=== PATIENT | female | born 1990 | race Caucasian/White ===

== ENCOUNTER 2016-04-05 01:20 | Emergency (ER) | payer OTHER ==
[~2016-04-05] VITALS: Ht 165.1 cm; Wt 72.6 kg
[2016-04-05 01:25] VITALS: BP 118/84
[2016-04-05] MEDS ORDERED: NKM (01:27)
[2016-04-05] MEDS ORDERED: levETIRAcetam 500 MG in D5W 110 ML IVPB ONE (01:45)
[2016-04-05] MEDS ORDERED: levETIRAcetam 500mg vial IV ONE (01:48)
[2016-04-05] MEDS ORDERED: KEPPRA500 M4 ORAL (02:01)
--- NOTE | 2016-04-05 02:01 | Emergency Room Report ---
History of Present Illness General Chief Complaint: Seizure Source: Patient, EMS Present Illness HPI This is a 25-year-old male with a history of one episode seizure in 2015. He saw a neurologist and had workup done. He said he had an EEG for 4 days and it showed minor seizure activity when he sleeping. Was placed on Keppra. He never took it. He was eventually clear. At that time the seizure activity was thought to be secondary to sleep deprivation because he was working really hard. He was sleeping then. He present with a 40 seconds tonic-clonic seizure activity tonight. He was driving and felt that he may have a seizure. He pulled over and had a tonic-clonic seizure activity. This was witnessed by his friend. He has no post ictal period. He has no oral trauma. No incontinence of bowel or urine. [place] better now. He is from [place]. 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 He said his been working really hard and not sleeping much. Denies any alcohol or drugs. Also been smoking a lot. Allergies: Coded Allergies: CODEINE (Verified Allergy, Unknown, 04/05/16) Patient History Past Medical History: see triage record, old chart reviewed Past Surgical History: none Pertinent Family History: none Social History: Denies: drug use Immunizations: other Reviewed Nursing Documentation: PMH: Agreed, PSxH: Agreed Review of Systems Eye: Denies: blurred vision, eye pain ENT: Denies: ear pain, nose congestion, throat swelling Respiratory: Denies: cough, shortness of breath Cardiovascular: Denies: chest pain, palpitations Gastrointestinal: Denies: abdominal pain, diarrhea, nausea, vomiting Musculoskeletal: Denies: back pain, joint pain Skin: Denies: rash Neurological: Reports: seizure, Denies: headache, numbness Endocrine: Denies: increased thirst, increased urine Hematologic/Lymphatic: Denies: easy bruising All Other Systems: negative except mentioned in HPI Physical Exam Vital Signs Date Time Temp Pulse Resp B/P Pulse Ox O2 Delivery O2 Flow Rate FiO2 04/05/16 01:20 98.2 112 16 151/89 96 Room Air vitals with tachycardia and htn. Sp02 EP Interpretation: reviewed, normal General Appearance: well appearing, no apparent distress, alert Head: normocephalic, atraumatic Eyes: bilateral eye EOMI, bilateral eye PERRL ENT: hearing grossly normal, normal pharynx Neck: full range of motion, supple, no meningismus Respiratory: chest non-tender, lungs clear, normal breath sounds Cardiovascular #1: regular rate, rhythm, no murmur Gastrointestinal: normal bowel sounds, non tender, no mass, no organomegaly, no bruit, non-distended Musculoskeletal: back normal, gait/station normal, normal range of motion Neurologic: alert, oriented x3 Psychiatric: mood/affect normal Skin: warm/dry Medical Decision Making Diagnostic Impression: Primary Impression: Epileptic seizure, generalized ER Course Patient the seizure activity. This is probably secondary to sleep deprivation. I told patient that he cannot drive and needed clearance from a neurologist. We'll put her back on Keppra. I see no need for repeat CT scan or labs. He is not from [place] so I would not do a [facility] report. Again stress the importance of not driving. Last Vital Signs Date Time Temp Pulse Resp B/P Pulse Ox O2 Delivery O2 Flow Rate FiO2 04/05/16 01:20 98.2 112 16 151/89 96 Room Air Status: improved Disposition: HOME, SELF-CARE Condition: Stable Scripts Levetiracetam (KEPPRA) 500 Mg Tablet 500 MG ORAL EVERY 12 HOURS, #60 TAB 0 Refills Prov: ALCIDES ARAGON M.D. 04/05/16 Patient Instructions: Seizure, Adult Additional Instructions: Follow up with your DrEliceo in [address] You need clearance from a neurologist to drive again. Return if symptom worsen. ALCIDES ARAGON M.D. Apr 05, 2016 02:01
[2016-04-05 02:40] VITALS: BP 120/86
== END 2016-04-05 02:40 | disposition home or self-care (01) ==
LOC: EDBD 01:20 → EDSEX 01:32 → EMR 01:32
DX: G40.409 Other generalized epilepsy and epileptic syndromes, not intractable, without status epilepticus (principal); Z88.6 Allergy status to analgesic agent
CPT/HCPCS: 96360; 96374; 99284; J1953